=== PATIENT | male | born 1995 | race African-American/Black ===

== ENCOUNTER 2021-04-07 01:49 | Emergency (ER) | payer SELFPAY ==
[~2021-04-07] VITALS: Ht 177.8 cm; Wt 106.1 kg
--- NOTE | 2021-04-07 01:55 | NUR ---
Pt BIB [id number] from home c/o left flank pain x 2 days. Denies n/v/d. No SOB or labored breathing, afebrile. No c/o chest pain/pressure. A/O x4
--- NOTE | 2021-04-07 01:58 | NUR ---
Dr. Fonseca at bedside, MSE in progress in room 3.
[2021-04-07] MEDS ORDERED: OXYCODONE/APAP 5-325 MG TABLET PO ONE (02:15)
--- NOTE | 2021-04-07 02:18 | NUR ---
Xray at bedside.
[2021-04-07] MEDS ORDERED: OXYCODONE/APAP 5-325 MG TABLET ONE (02:23)
[2021-04-07 02:40] LABS: *BILIRUBIN,URIN NEGATIVE (NEGATIVE); *BLOOD, URINE NEGATIVE (NEGATIVE); *CLARITY,URINE CLEAR (CLEAR); *COLOR,URINE YELLOW (YELLOW); *KETONES,URINE NEGATIVE (NEGATIVE); *UROBILINOGEN,URINE 0.2 E.U./dl (NORMAL); LEUKOCYTE ESTERASE ,URINE NEGATIVE (NEGATIVE); NITRITE, URINE NEGATIVE (NEGATIVE); PH,URINE 5.5 (5.0-8.0); UGLUCOSE NEGATIVE (NEGATIVE)
[2021-04-07 02:42] LABS: BASOPHILS % (AUTO) 0.3 % (0.0-2.0); EOSINOPHILS # (AUTO) 0.2 K/uL (0.0-0.7); EOSINOPHILS % (AUTO) 1.6 % (0.0-7.0); HEMATOCRIT 40.1 % (36.7-47.1); HEMOGLOBIN 13.7 g/dL (12.5-16.3); LYMPHOCYTES # (AUTO) 1.6 K/uL (20.0-40.0); MEAN CORPUSCULAR HEMOGLOBIN 30.4 uug (23.8-33.4); MEAN CORPUSCULAR HGB CONC 34 g/dL (32.5-36.3); MEAN CORPUSCULAR VOLUME 88.6 fL (73.0-96.2); MONOCYTES # (AUTO) 1.3 K/uL (2.0-10.0); MONOCYTES % (AUTO) 9.1 % (0.0-11.0); PLATELET COUNT (AUTO) 178 K/uL (152-348); RED BLOOD CELL COUNT(AUTO) 4.52 MIL/uL (4.06-5.63); WHITE BLOOD COUNT (AUTO) 14.1 K/uL (3.6-10.2)
[2021-04-07 02:49] LABS: CREATININE 1.2 mg/dL (0.6-1.3); POTASSIUM 4.1 mmol/L (3.5-5.1)
[2021-04-07 02:54] LABS: BILIRUBIN,DIRECT 0.3 mg/dL (0.0-0.2); BILIRUBIN,TOTAL 1.7 mg/dL (0.2-1.0); TOTAL PROTEIN, SERUM 8.4 g/dL (6.4-8.2)
[2021-04-07] MEDS ORDERED: SWABABLE VALVE TRANSFER SET EA MC ONE (03:38)
[2021-04-07] MEDS ORDERED: IOHEXOL 300MG/ML 100 ML INFUS..BTL ONE (03:38)
[2021-04-07] MEDS ORDERED: IV NORMAL SALINE 250 ML IV ONE (03:38)
--- NOTE | 2021-04-07 03:42 | NUR ---
Pt taken down for CT.
--- NOTE | 2021-04-07 04:00 | NUR ---
Patient back to ER from CT.
[2021-04-07] MEDS ORDERED: OXYC-128 PO (05:48)
--- NOTE | 2021-04-07 06:14 | NUR ---
Patient discharged to home in stable condition. A/O x4, no SOB or labored breathing. Afebrile. No c/o pain or discomfort. Steady gait. Written and verbal after care instructions given. Patient verbalizes understanding of instructions. Stressed follow up or return to ER for worsening s/s.
[2021-04-07 06:15] VITALS: BP 123/70
== END 2021-04-07 06:05 | disposition home or self-care (01) ==
LOC: ER 01:49
DX: D73.5 Infarction of spleen (principal); R74.01 Elevation of levels of liver transaminase levels; D72.829 Elevated white blood cell count, unspecified
CPT/HCPCS: 36415; 74018; 74177; 80048; 80076; 81003; 83690; 85025; 99285; Q9967; A4663; J7050